=== PATIENT | male | born 1950 | race Caucasian/White ===

== ENCOUNTER → 2017-12-14 12:58 | Outpatient (CLI) | payer MEDICARE, SELFPAY ==
--- NOTE | 2017-12-14 | DI.ECHO.S_ITS ---
[place] +---------+ [facility] +---------+ : : [address] : : : : [place] : : : : [id number] : : : : Phone: [phone] +---------+ Echocardiogram Report + + :Name: SARA DEMPSEY Study Date: 12/14/2017 Height: 73 in : :[facility] Exam Location: IS Weight: 170 lb : : Gender: Male BSA: 2.0 m2 : :: 1950 Age: 67 yrs BP: 122/80 mmHg: :Reason For Study: Aortic Regurgitation : :Ordering Physician: Nils : :Salma Performed By: Cami Sidhu : :Referring: NILS GAYLE : + + Interpretation Summary The left ventricle is mild-moderately dilated. There is mild-moderate concentric left ventricular hypertrophy. The ejection fraction is estimated to be 55-60%. The right ventricle is borderline dilated. The right ventricular systolic function is normal. Both atria are severely dilated. The aortic valve is bicuspid. The peak aortic velocity is 3.9 m/sec. The calculated aortic valve area is 1.8 cm2. There is moderate to severe aortic regurgitation. The IVC is dilated (diameter is greater than 2.1 cm) yet it collapses greater than 50% with a sniff. This suggests a right atrial pressure of 8 mm Hg. The ascending aorta is moderate-severely enlarged. Compared with the prior exam from 06/23/2016 the Aortic size is unchanged. No other echocardiographic abnormalities seen. Compared to the prior echo report on 06/23/2016, there is no significant change. Procedure: A two-dimensional transthoracic echocardiogram with color flow and Doppler was performed. The study quality was technically adequate. Comparison is made with the echocardiogram of 06/23/2016. Left Ventricle: The left ventricle is mild-moderately dilated. There is mild-moderate concentric left ventricular hypertrophy. The ejection fraction is estimated to be 55-60%. There are no focal wall motion abnormalities. Right Ventricle: The right ventricle is borderline dilated. The right ventricular systolic function is normal. Atria: Both atria are severely dilated. The interatrial septum is intact with no evidence for an atrial septal defect. Mitral Valve: The mitral valve leaflets appear borderline thickened, but open well. There is mild mitral regurgitation. Aortic Valve: The aortic valve is bicuspid. The aortic valve is mildly calcified. The peak aortic velocity is 3.9 m/sec. The aortic valve mean gradient is 35 mmHg. The calculated aortic valve area is 1.8 cm2. There is moderate to severe aortic regurgitation. Tricuspid Valve: The tricuspid valve is normal in structure and function. There is trace tricuspid regurgitation. Pulmonary artery pressures cannot be estimated because of the lack of a measurable TR jet velocity. Pulmonic Valve: The pulmonic valve is normal in structure and function. There is trace pulmonic regurgitation. Great Vessels: The aortic root is moderately dilated. The ascending aorta is moderate-severely enlarged. Compared with the prior exam from 06/23/2016 the Aortic size is unchanged. The IVC is dilated (diameter is greater than 2.1 cm) yet it collapses greater than 50% with a sniff. This suggests a right atrial pressure of 8 mm Hg. Pericardium/ Pleura There is no pericardial effusion. There is no pleural effusion. MMode/2D Measurements & Calculations LVIDd: 6.3 cm LVOT diam: 2.9 cm LVIDs: 3.6 cm Ao root diam: 4.4 cm FS: 42.0 % asc Aorta Diam: 4.9 cm EPSS: 1.7 cm Ao Arch Diam (Prox Trans): 2.6 cm IVSd: 1.8 cm LVPWd: 1.4 cm LV navarro. diameter/BSA (cm/m^2): 3.1 LV sys. diameter/BSA (cm/m^2): 1.8 LA A2 area: 46.6 cm2 RA long axis: 7.7 cm LA A4 area: 33.1 cm2 RA area: 29.2 cm2 LA length (vol): 7.3 cm RA vol: 94.2 ml LA vol: 179.2 ml RA : 46.9 ml/m2 LA vol index: 89.2 ml/m2 IVC diam: 2.6 cm RVD1 (basal): 4.2 cm TAPSE: 2.5 cm Doppler Measurements & Calculations Ao V2 max: 388.8 cm/sec LVOT Max Mookie: 103.8 cm/sec Ao V2 mean: 282.6 cm/sec LV V1 max P.3 mmHg Ao max P.5 mmHg LV V1 VTI: 25.4 cm Ao mean P.3 mmHg JATINDER(I,D): 1.8 cm2 Ao V2 VTI: 95.8 cm JATINDER(V,D): 1.8 cm2 sev ratio: 0.27 JATINDER indexed to BSA (cm^2/m^2): 0.89 AI P1/2t: 483.3 msec AI dec slope: 247.7 cm/sec2 Reading Physician:05:57 PM
== END ==
PROVIDERS: Visit Provider Internal Medicine Cardiovascular Disease
DX: I35.1 Nonrheumatic aortic (valve) insufficiency (principal)
CPT/HCPCS: 93306

== ENCOUNTER → 2019-04-12 13:47 | Outpatient (CLI) | payer MEDICARE, SELFPAY ==
--- NOTE | 2019-04-12 | DI.ECHO.S_ITS ---
[place] +---------+ Hospital +---------+ : : [address] : : : : [place], [place] : : : : [id number] : : : : Phone: [phone] +---------+ Echocardiogram Report + + :Name: SARA DEMPSEY Study Date: 04/12/2019 Height: 73 in : :[facility] Exam Location: [facility] Weight: 180 lb : : Gender: Male BSA: 2.1 m2 : :: 1950 Age: 69 yrs BP: 118/70 mmHg: :Reason For Study: AI : : Performed By: Patricio Weaver : :Referring: ILIANA GAYLE : + + Interpretation Summary Afib with heart rate ranging from 49-72 bpm. Mildly dilated LV (6 cm diameter) with normal wall thickness. There is normal EF estimated at 55-60%. Severe biatrial enlargement. RV is normal in size with mildly reduced RV function based on TAPSE. Aortic valve is a bicuspid structure. Aortic valve leaflets are severely thickened and calcified. There is severe aortic stenosis with mean gradient of 40 mm Hg and peak velocity of 3.8 m/sec. There is moderate associated aortic regurgitation. Otherwise no significant valvular abnormalities. There is moderately dilated ascending aorta measuring 4.9 cm. Compared to prior study 12/14/2017 aortic valve degeneration is worse. Peak velocity across the aortic valve ivis from 3.5 to 3.8 m/sec. Mean gradient is up from 35 to 40 mm Hg. Ascending aorta dimension is stable. LV size is stable. Procedure: A two-dimensional transthoracic echocardiogram with color flow and Doppler was performed. The study quality was technically good. Comparison is made with the echocardiogram of 12/14/17. The patient was in atrial fibrillation with controlled ventricular rate during the exam. The patient had a heart rate of 49-72 beats per minute. Left Ventricle: There is normal left ventricular wall thickness. The left ventricle is mildly dilated. The ejection fraction is estimated to be 55-60%. There are no focal wall motion abnormalities. Right Ventricle: The right ventricle is normal size. Right ventricular systolic function is at the lower limits of normal. Atria: Both atria are severely dilated. The interatrial septum is intact with no evidence for an atrial septal defect. Mitral Valve: There is mild mitral annular calcification. There is trace mitral regurgitation. Aortic Valve: The aortic valve is bicuspid. The aortic valve is mildly calcified. The peak aortic velocity is 3.8 m/sec. The aortic valve mean gradient is 40.1 mmHg. The calculated aortic valve area is 1.0 cm2. There is moderate aortic stenosis. There is mild to moderate aortic regurgitation. There is no holodiastolic flow reversal in the descending thoracic aorta. Tricuspid Valve: The tricuspid valve is normal in structure and function. There is trace tricuspid regurgitation. Pulmonary artery pressures cannot be estimated because of the lack of a measurable TR jet velocity. Pulmonic Valve: The pulmonic valve is normal in structure and function. There is trace pulmonic regurgitation. Great Vessels: The aortic root is mildly dilated. The ascending aorta is moderately enlarged. The pulmonary artery is normal size. The IVC is dilated (diameter is greater than 2.1 cm) yet it collapses greater than 50% with a sniff. This suggests a right atrial pressure of 8 mm Hg. Pericardium/ Pleura There is no pericardial effusion. There is no pleural effusion. MMode/2D Measurements & Calculations LVIDd: 6.0 cm LVOT diam: 2.6 cm LVIDs: 4.0 cm Ao root diam: 4.2 cm FS: 34.0 % Aortic Jxn: 3.5 cm EPSS: 1.4 cm asc Aorta Diam: 4.9 cm IVSd: 1.3 cm Ao Arch Diam (Prox Trans): 2.8 cm LVPWd: 1.1 cm LV navarro. diameter/BSA (cm/m^2): 2.9 LV sys. diameter/BSA (cm/m^2): 1.9 LA dimension: 4.8 cm RA long axis: 7.4 cm LA A2 area: 53.4 cm2 RA area: 33.3 cm2 LA A4 area: 43.9 cm2 RA vol: 127.7 ml LA length (vol): 7.9 cm RA : 62.1 ml/m2 LA vol: 250.4 ml IVC diam: 2.8 cm LA vol index: 121.7 ml/m2 Doppler Measurements & Calculations Ao V2 max: 383.2 cm/sec LVOT Max Mookie: 75.4 cm/sec Ao V2 mean: 308.3 cm/sec LV V1 max P.3 mmHg Ao max P.8 mmHg LV V1 VTI: 18.4 cm Ao mean P.1 mmHg JATINDER(I,D): 1.0 cm2 Ao V2 VTI: 97.2 cm JATINDER(V,D): 1.0 cm2 sev ratio: 0.19 JATINDER indexed to BSA (cm^2/m^2): 0.49 AI P1/2t: 646.2 msec AI dec slope: 198.4 cm/sec2 MV E max mookie: 119.1 cm/sec PA V2 max: 62.5 cm/sec MV A max mookie: 0.64 cm/sec PA V2 mean: 45.0 cm/sec MV E/A: 185.3 PA mean P.88 mmHg Med Peak E' Mookie: 6.2 cm/sec PA pr(Accel): 25.8 mmHg E/E' med: 19.1 MV dec time: 0.18 sec MVA(VTI): 5.1 cm2 MV V2 mean: 68.0 cm/sec SV(LVOT): 97.4 ml MV mean P.3 mmHg MV V2 VTI: 19.3 cm Electronically signed by: Meryl Miller M.D. on Reading Physician:04/14/2019 05:43 AM
== END ==
PROVIDERS: PCP Family Medicine; Visit Provider Internal Medicine Cardiovascular Disease
DX: I35.2 Nonrheumatic aortic (valve) stenosis with insufficiency (principal); I77.89 Other specified disorders of arteries and arterioles
CPT/HCPCS: 93306

== ENCOUNTER → 2019-06-17 17:20 | Outpatient (CLI) | payer MEDICARE, SELFPAY ==
[2019-06-17 18:06] LABS: INR 3.2 (0.9-1.3); Prothrombin Time 37.7 SECONDS (10.1-12.7)
== END ==
PROVIDERS: PCP Family Medicine; Visit Provider Family Medicine
DX: I48.91 Unspecified atrial fibrillation (principal)
CPT/HCPCS: 36415; 85610

== ENCOUNTER → 2019-09-12 13:53 | Outpatient (CLI) | payer OTHER, SELFPAY ==
--- NOTE | 2019-09-12 | DI.ECHO.S_ITS ---
[place] +---------+ Hospital +---------+ : : [address] : [place] : : : : [id number] : : : : Phone: [phone] +---------+ Echocardiogram Report + + :Name: SARA DEMPSEY Study Date: 09/12/2019 Height: 73 in : :[facility] Weight: 175 lb : : Gender: Male BSA: 2.0 m2 : :: 1950 Age: 69 yrs BP: 142/82 mmHg: :Reason For Study: Bicuspid Aortic Valve, Aortic Insufficiency, : :Aortic Stenosis : :Ordering Physician: Andriy : :Nidia Pugh Performed By: Susana Kim : :Referring: ANDRIY SCHULTZ : + + Interpretation Summary The aortic valve is bicuspid. Moderately severe aortic stenosis with JATINDER 1.1cm2, average peak velocity of 3.6 m/s and average mean gradient of 40 mmHg with mild to moderate AI. Dilated ascending aorta at 5 cm. Severe biatrial enlargement. The left ventricular ejection fraction is normal. LVEDD 5.6 cm, LVEDV 140 ml The right ventricle is normal in size and function. Procedure: The study quality was technically adequate. A two-dimensional transthoracic echocardiogram with color flow and Doppler was performed. Comparison is made with the echocardiogram of 04/12/2019. The patient was in atrial fibrillation with heart rates between 60-72 bpm during the exam. Left Ventricle: The left ventricle is mildly dilated. There is normal left ventricular wall thickness. The ejection fraction is estimated to be 55-60%. The left ventricular ejection fraction is normal. Left ventricular wall motion is normal. Diastolic function could not be accurately assessed due to atrial fibrillation. Right Ventricle: The right ventricle is normal in size and function. Atria: Both atria are severely dilated. Mitral Valve: There is a flat closure plane of the the mitral valve leaflets. There is mild mitral annular calcification. There is mild mitral regurgitation. Aortic Valve: The aortic valve is bicuspid. The aortic valve is moderately calcified. There is severe aortic stenosis. There is mild to moderate aortic regurgitation. Tricuspid Valve: The tricuspid valve is normal in structure and function. There is a trace or physiologic amount of tricuspid regurgitation. Pulmonary artery pressures cannot be estimated because of the lack of a measurable TR jet velocity but the IVC suggests a CVP of around 8 mmHg. Pulmonic Valve: The pulmonic valve is not well visualized. There is no pulmonic valvular regurgitation. Great Vessels: The aortic root is mildly dilated. The ascending aorta is moderately enlarged. The IVC is dilated (diameter is greater than 2.1 cm) yet it collapses greater than 50% with a sniff. This suggests a right atrial pressure of 8 mm Hg. Pericardium/ Pleura There is no pericardial effusion. There is no pleural effusion. MMode/2D Measurements & Calculations LVIDd: 6.1 cm LVOT diam: 2.6 cm LVIDs: 4.5 cm Ao root diam: 4.0 cm FS: 26.2 % asc Aorta Diam: 5.0 cm EPSS: 1.3 cm Ao Arch Diam (Prox Trans): 2.8 cm IVSd: 1.2 cm LVPWd: 1.2 cm LV navarro. diameter/BSA (cm/m^2): 3.0 LV sys. diameter/BSA (cm/m^2): 2.2 LA A2 area: 44.0 cm2 RA long axis: 7.4 cm LA A4 area: 42.1 cm2 RA area: 39.2 cm2 LA length (vol): 7.9 cm RA vol: 175.8 ml LA vol: 198.7 ml RA : 86.5 ml/m2 LA vol index: 97.7 ml/m2 IVC diam: 2.2 cm RVD1 (basal): 3.4 cm LVAd ap4: 37.0 cm2 TAPSE: 2.0 cm LVAs ap4: 24.4 cm2 LVLs ap4: 7.6 cm Doppler Measurements & Calculations Ao V2 max: 414.1 cm/sec LVOT Max Mookie: 85.7 cm/sec Ao V2 mean: 298.7 cm/sec LV V1 max P.9 mmHg Ao max P.7 mmHg LV V1 VTI: 20.6 cm Ao mean P.9 mmHg JATINDER(I,D): 1.1 cm2 Ao V2 VTI: 96.0 cm JATINDER(V,D): 1.1 cm2 sev ratio: 0.21 JATINDER indexed to BSA (cm^2/m^2): 0.55 MV E max mookie: 126.0 cm/sec PA V2 max: 55.4 cm/sec MV A max mookie: 1.3 cm/sec PA V2 mean: 39.2 cm/sec MV E/A: 93.5 PA mean P.70 mmHg Med Peak E' Mookie: 8.3 cm/sec PA pr(Accel): 33.3 mmHg E/E' med: 15.2 PA Accel Time: 0.11 sec Lat Peak E' Mookie: 10.0 cm/sec E/E' lat: 12.6 E/e' average: 13.9 MV dec time: 0.17 sec MV P1/2t: 48.5 msec MV P1/2t max mookie: 121.3 cm/sec SV(LVOT): 108.3 ml MVA(P1/2t): 4.5 cm2 Electronically signed by: Andriy Schultz M.D. on Reading Physician:09/13/2019 06:17 PM
== END ==
PROVIDERS: PCP Family Medicine; Referring Provider Hospitalist; Visit Provider Hospitalist
DX: I08.0 Rheumatic disorders of both mitral and aortic valves (principal); I77.810 Thoracic aortic ectasia
CPT/HCPCS: 93306

== ENCOUNTER → 2019-10-06 16:25 | Outpatient (CLI) | payer OTHER, SELFPAY ==
[2019-10-06 17:31] LABS: BUN Creatinine Ratio 21.4 (6-22); Blood Urea Nitrogen 18 mg/dL (9-20); Carbon Dioxide 28 mmol/L (22-32); Chloride 107 mmol/L (98-107); Estimated Glomerular Filt Rate > 60.0 mL/min (>60); Glucose 94 mg/dL (80-110); HEMOLYSIS 26 (0-50); Potassium 4.2 mmol/L (3.4-5.1); Sodium 139 mmol/L (137-145)
== END ==
PROVIDERS: PCP Family Medicine; Referring Provider Nurse Practitioner; Visit Provider Nurse Practitioner
DX: I71.9 Aortic aneurysm of unspecified site, without rupture (principal)
CPT/HCPCS: 36415; 80048

== ENCOUNTER → 2019-11-17 16:52 | Outpatient (CLI) | payer OTHER, SELFPAY | PROVIDERS: PCP Family Medicine; Referring Provider Ophthalmology; Visit Provider Ophthalmology | DX: B00.9 Herpesviral infection, unspecified (principal); H16.9 Unspecified keratitis | CPT/HCPCS: 87070; 87205; 87255 ==

== ENCOUNTER → 2020-04-09 14:39 | Outpatient (CLI) | payer OTHER, SELFPAY ==
--- NOTE | 2020-04-09 | DI.ECHO.S_ITS ---
[place] +---------+ Hospital +---------+ : : [address] : [place] : : : : [id number] : : : : Phone: [phone] : [phone] +---------+ Echocardiogram Report + + :Name: SARA DEMPSEY Study Date: 04/09/2020 Height: 73 in : :[facility] Weight: 172 lb : : Gender: Male BSA: 2.0 m2 : :: 1950 Age: 70 yrs BP: 131/79 mmHg: :Reason For Study: PRESENCE OF OTHER VASCULAR IMPLANTS AND : :GRAFTS : :Ordering Physician: MARION, : :ANDRIY Performed By: Susana Kim : :Referring: ANDRIY SCHULTZ : + + Interpretation Summary The left ventricle is normal in size. Left ventricular ejection fraction is estimated to be 50 +/- 5%. Compared to the prior exam, the left ventricular function is reduced. E/E' med: 22.8 The right ventricle is grossly normal size. Right ventricular systolic function is mildly reduced. There is a pacemaker lead in the right ventricle (new). There is a catheter/pacemaker lead seen in the right atrium. There is a mechanical aortic valve (new). There is trace perivalvular regurgitation around the prosthetic aortic valve. The peak aortic velocity is 1.89 m/sec. The aortic valve mean gradient is 7.5 mmHg. The prosthetic aortic valve is well-seated. There is mild to moderate tricuspid regurgitation. This is decreased compared to the previous study. Procedure: A two-dimensional transthoracic echocardiogram with color flow and Doppler was performed. The study quality was technically adequate. Comparison is made with the echocardiogram of 09/12/2019. The patient has a paced rhythm. Left Ventricle: The left ventricle is normal in size. There is mild-moderate concentric left ventricular hypertrophy. There is no thrombus. Left ventricular ejection fraction is estimated to be 50 +/- 5%. Compared to the prior exam, the left ventricular function is reduced. There is a mild dyssynchronous contraction pattern due to the paced rhythm. Septal motion is consistent with post-operative state. There is septal wall hypokinesis. Diastolic function could not be accurately assessed due to paced rhythm. E/E' med: 22.8. Right Ventricle: There is a pacemaker lead in the right ventricle. The right ventricle is grossly normal size. Right ventricular systolic function is mildly reduced. Atria: The left atrium is severely dilated. The left atrium has remained unchanged in size since the prior echo exam. There is a catheter/pacemaker lead seen in the right atrium. The right atrium is severely dilated. There is no Doppler evidence for an interatrial shunt. Mitral Valve: There is mild mitral annular calcification. There is mild mitral regurgitation. Aortic Valve: There is a mechanical aortic valve. There is trace perivalvular regurgitation around the prosthetic aortic valve. The prosthetic aortic valve is well-seated. There is no aortic valve stenosis. The peak aortic velocity is 1.89 m/sec. The aortic valve mean gradient is 7.5 mmHg. Tricuspid Valve: The tricuspid valve is normal. There is mild to moderate tricuspid regurgitation. Pulmonic Valve: The pulmonic valve leaflets are thin and pliable; valve motion is normal. There is mild pulmonic regurgitation. Great Vessels: The aortic root is not well visualized. The ascending aorta is normal in size. This is decreased compared to the previous study. The IVC is of normal diameter and collapses greater than 50% with a sniff. This suggests a low right atrial pressure of 3 mm Hg. Pericardium/ Pleura There is no pericardial effusion. There is no pleural effusion. MMode/2D Measurements & Calculations LVIDd: 5.5 cm LVOT diam: 2.1 cm LVIDs: 4.3 cm asc Aorta Diam: 3.3 cm FS: 23.0 % Ao Arch Diam (Prox Trans): 3.8 cm EPSS: 0.58 cm IVSd: 1.5 cm LVPWd: 1.3 cm LV navarro. diameter/BSA (cm/m^2): 2.7 LV sys. diameter/BSA (cm/m^2): 2.1 LA A2 area: 49.3 cm2 RA long axis: 7.3 cm LA A4 area: 30.6 cm2 RA area: 28.8 cm2 LA length (vol): 7.3 cm RA vol: 96.8 ml LA vol: 173.9 ml RA : 48.0 ml/m2 LA vol index: 86.2 ml/m2 IVC diam: 1.8 cm RVD1 (basal): 3.9 cm TAPSE: 1.2 cm Doppler Measurements & Calculations Ao V2 max: 188.9 cm/sec LVOT Max Mookie: 155.9 cm/sec Ao V2 mean: 127.0 cm/sec LV V1 max P.7 mmHg Ao max P.3 mmHg LV V1 VTI: 30.7 cm Ao mean P.5 mmHg JATINDER(I,D): 2.8 cm2 Ao V2 VTI: 37.8 cm JATINDER(V,D): 2.8 cm2 sev ratio: 0.81 JATINDER indexed to BSA (cm^2/m^2): 1.4 MV E max mookie: 109.4 cm/sec TR max mookie: 229.4 cm/sec MV A max mookie: 0.84 cm/sec TR max P.0 mmHg MV E/A: 129.9 PA V2 max: 56.9 cm/sec Med Peak E' Mookie: 4.8 cm/sec PA V2 mean: 38.8 cm/sec E/E' med: 22.8 PA mean P.68 mmHg Lat Peak E' Mookie: 9.3 cm/sec PA pr(Accel): 27.6 mmHg E/E' lat: 11.8 E/e' average: 17.3 MV dec time: 0.24 sec SV(LVOT): 104.9 ml Reading Physician:05:56 PM
== END ==
PROVIDERS: PCP Family Medicine; Referring Provider Hospitalist; Visit Provider Hospitalist
DX: I08.1 Rheumatic disorders of both mitral and tricuspid valves (principal); Z95.4 Presence of other heart-valve replacement; Z95.828 Presence of other vascular implants and grafts; Z95.0 Presence of cardiac pacemaker
CPT/HCPCS: 93306

== ENCOUNTER → 2020-04-21 14:23 | Outpatient (CLI) | payer OTHER, SELFPAY ==
[2020-04-23 07:55] LABS: COVID19 Sendout Not Detected (Not Detect)
== END ==
PROVIDERS: PCP Family Medicine; Visit Provider Physician Assistant
DX: Z01.812 Encounter for preprocedural laboratory examination (principal)
CPT/HCPCS: 87635

== ENCOUNTER 2020-09-10 14:00 | Outpatient (RCR) | payer OTHER, SELFPAY | END 2020-09-10 15:00 | LOC: CAR 14:00 | PROVIDERS: PCP Family Medicine; Referring Provider Hospitalist; Visit Provider Hospitalist | DX: Z95.2 Presence of prosthetic heart valve (principal) | CPT/HCPCS: 93798 ==

== ENCOUNTER → 2020-09-14 15:22 | Outpatient (CLI) | payer OTHER, SELFPAY ==
[2020-09-14 16:53] LABS: BUN Creatinine Ratio 29.6 (6-22); Blood Urea Nitrogen 24 mg/dL (9-20); Carbon Dioxide 28 mmol/L (22-32); Chloride 107 mmol/L (98-107); Estimated Glomerular Filt Rate > 60.0 mL/min (>60); Glucose 104 mg/dL (80-110); HEMOLYSIS < 15 (0-50); Potassium 4.2 mmol/L (3.4-5.1); Sodium 140 mmol/L (137-145)
== END ==
PROVIDERS: PCP Family Medicine; Referring Provider Internal Medicine Cardiovascular Disease; Visit Provider Internal Medicine Cardiovascular Disease
DX: I48.20 Chronic atrial fibrillation, unspecified (principal)
CPT/HCPCS: 36415; 80048

== ENCOUNTER → 2020-09-24 08:59 | Outpatient (CLI) | payer OTHER, SELFPAY ==
--- NOTE | 2020-09-24 | DI.ECHO.S_ITS ---
[place] +---------+ Hospital +---------+ : : [address] : [place] : : : : [id number] : : : : Phone: [phone] : : [phone] +---------+ Echocardiogram Report + + :Name: SARA DEMPSEY Study Date: 09/24/2020 Height: 73 in : :[facility] ReadingLocation: Weight: 175 lb : : Gender: Male BSA: 2.0 m2 : :: 1950 Age: 70 yrs BP: 157/84 mmHg: :Reason For Study: PROSTHETIC HEART VALVE : :Ordering Physician: ADELA, : :MAYO Performed By: Susana Kim : :Referring: MAYO CHAPMAN : + + Interpretation Summary The left ventricle is normal in size. Left ventricular ejection fraction is estimated to be 50 +/- 5%. There has been no significant change in LVEF since the previous exam. The right ventricle is grossly normal size. There is a pacemaker lead in the right ventricle. Right ventricular systolic function is mildly reduced. There is a mechanical aortic valve. The prosthetic aortic valve is well-seated. The peak aortic velocity is 1.69 m/sec. The aortic valve mean gradient is 7.3 mmHg. The peak aortic velocity on the previous exam was 1.88 m/sec. There is trace perivalvular regurgitation around the prosthetic aortic valve. The IVC is of normal diameter and collapses greater than 50% with a sniff. This suggests a low right atrial pressure of 3 mm Hg. Procedure: A two-dimensional transthoracic echocardiogram with color flow and Doppler was performed in limited views only to assess aortic valve replacement, ejection fraction, wall motion, RVSP.. The study quality was technically adequate. Comparison is made with the echocardiogram of 04/09/2020. The heart rate ranged between 60-74 bpm during the study. The patient was in atrial fibrillation with controlled ventricular rate during the exam. Left Ventricle: The left ventricle is normal in size. There is mild concentric left ventricular hypertrophy. There is no thrombus. There has been no significant change since the previous exam. Left ventricular ejection fraction is estimated to be 50 +/- 5%. Septal motion is consistent with conduction abnormality. There is septal wall hypokinesis. Right Ventricle: The right ventricle is grossly normal size. There is a pacemaker lead in the right ventricle. Right ventricular systolic function is mildly reduced. There has been no significant change since the previous study. Atria: The left atrium is severely dilated. Both atria have remained unchanged in size since the prior echo exam. The right atrium is severely dilated. There is a catheter/pacemaker lead seen in the right atrium. Mitral Valve: There is mild mitral annular calcification. Aortic Valve: There is a mechanical aortic valve. There is trace perivalvular regurgitation around the prosthetic aortic valve. The prosthetic aortic valve is well-seated. The peak aortic velocity is 1.69 m/sec. The aortic valve mean gradient is 7.3 mmHg. The peak aortic velocity on the previous exam was 1.88 m/sec. Tricuspid Valve: There is mild to moderate tricuspid regurgitation. The right ventricular systolic pressure is estimated to be at least 20 mmHg based on an estimated right atrial pressure of 3 mm Hg. Great Vessels: The ascending aorta is normal in size. The IVC is of normal diameter and collapses greater than 50% with a sniff. This suggests a low right atrial pressure of 3 mm Hg. Pericardium/ Pleura There is no pericardial effusion. There is no pleural effusion. MMode/2D Measurements & Calculations LVIDd: 5.4 cm LVOT diam: 2.0 cm LVIDs: 3.7 cm asc Aorta Diam: 3.2 cm FS: 31.0 % IVSd: 1.3 cm LVPWd: 1.3 cm LV navarro. diameter/BSA (cm/m^2): 2.6 LV sys. diameter/BSA (cm/m^2): 1.8 LA A2 area: 36.8 cm2 RA long axis: 7.8 cm LA A4 area: 43.9 cm2 RA area: 33.4 cm2 LA length (vol): 8.0 cm RA vol: 120.9 ml LA vol: 171.6 ml RA : 59.4 ml/m2 LA vol index: 84.4 ml/m2 IVC diam: 1.8 cm RVD1 (basal): 2.3 cm TAPSE: 1.2 cm Doppler Measurements & Calculations Ao V2 max: 168.9 cm/sec LVOT Max Mookie: 76.0 cm/sec Ao V2 mean: 128.6 cm/sec LV V1 max P.3 mmHg Ao max P.5 mmHg LV V1 VTI: 14.0 cm Ao mean P.3 mmHg JATINDER(I,D): 1.4 cm2 Ao V2 VTI: 32.1 cm JATINDER(V,D): 1.4 cm2 sev ratio: 0.44 JATINDER indexed to BSA (cm^2/m^2): 0.68 TR max mookie: 203.8 cm/sec SV(LVOT): 44.6 ml TR max P.6 mmHg PA pr(Accel): 8.8 mmHg Reading Physician:01:26 PM
== END ==
PROVIDERS: PCP Family Medicine; Referring Provider Internal Medicine Cardiovascular Disease; Visit Provider Internal Medicine Cardiovascular Disease
DX: I07.1 Rheumatic tricuspid insufficiency (principal); Z95.2 Presence of prosthetic heart valve; Z95.0 Presence of cardiac pacemaker
CPT/HCPCS: 93307

== ENCOUNTER → 2020-09-24 10:19 | Outpatient (CLI) | payer MEDICARE, SELFPAY ==
[2020-09-24] MEDS: COVID-19 VACC, Ad26(JANSSEN)/PF 0.5 ML IM (10:28)
== END ==
PROVIDERS: PCP Family Medicine; Visit Provider Internal Medicine
DX: Z23 Encounter for immunization (principal)
CPT/HCPCS: 0031A; 91303

== ENCOUNTER → 2021-01-21 14:06 | Outpatient (CLI) | payer OTHER, SELFPAY ==
[2021-01-21 15:18] LABS: INR 3.8 (0.9-1.3); Prothrombin Time 43.5 SECONDS (10.1-12.7)
== END ==
PROVIDERS: PCP Family Medicine; Referring Provider Family Medicine; Visit Provider Family Medicine
DX: I48.11 Longstanding persistent atrial fibrillation (principal); Z79.01 Long term (current) use of anticoagulants
CPT/HCPCS: 85610

== ENCOUNTER → 2021-05-21 14:52 | Outpatient (CLI) | payer OTHER, SELFPAY ==
--- NOTE | 2021-05-21 14:52 | DI.ECHO.S_ITS ---
Version: 1 Study ID: [id number] [address] [place] [address] Name: SARA DEMPSEY Study Date: 05/21/2021, 4: 27 PM : 1950 BP: 149 / 95 mmHg Gender: Male Height: 73 in Age: 71 Years Weight: 185 lb BSA: 2.08 mA? Ordering: MAYO CHAPMAN Referring: MAYO CHAPMAN Clinician: Susana Kim Reason For Study: ATRIAL FIBRILLATION History: Summary Statements Afib with controlled rate in the setting of RV pacing. The left ventricle is normal in size; moderate concentric LVH; mildly reduced LV systolic function estimated at 45-50%. Severe biatrial enlargement. There is a mechanical aortic valve. The prosthetic aortic valve is well-seated. There is trace perivalvular regurgitation along the posterolateral aspect of the prosthetic aortic valve. Otherwise no significant valvular abnormalities. There is a pacing lead traversing the tricuspid valve. Estimated PA systolic pressure is 29 mm Hg assuming RA pressure of 8 mm Hg. Compared to prior study in 2019, no changes have occurred. Procedure: A two-dimensional transthoracic echocardiogram with color flow and Doppler was performed in limited views only to assess Aortic valve replacement, ejection fraction.. The study quality was technically adequate. Comparison is made with the echocardiogram of 09/24/2020. The patient has a paced rhythm. The heart rate ranged between 60-65 bpm during the study. Left Ventricle: The left ventricle is normal in size. There is moderate concentric left ventricular hypertrophy. The ejection fraction is estimated to be 45-50%. Right Ventricle: The right ventricle is normal size. There is a pacemaker lead in the right ventricle. Right ventricular systolic function is mildly reduced. Atria: The left atrium is severely dilated. The right atrium is severely dilated. Mitral Valve: Aortic Valve: There is a mechanical aortic valve. There is trace perivalvular regurgitation around the prosthetic aortic valve. The peak aortic velocity is 1.97 m/sec. The aortic valve mean gradient is 8 mmHg. The calculated aortic valve area is 1.3 cm2. Pulmonic Valve: Great Vessels: The dimensions of the ascending aorta are normal. Pericardium/ Pleura: There is no pericardial effusion. There is no pleural effusion. 2D and M-Mode Measurements and Calculations LVIDd: 5.6 cm LVOT diam: 2.01 cm LVIDs: 3.9 cm Ao root diam: 4.4 cm IVSd: 1.51 cm asc Aorta Diam: 3.3 cm LVPWd: 1.34 cm LV navarro. diameter/BSA (cm/m^2): 2.7 LV sys. diameter/BSA (cm/m^2): 1.89 TAPSE: 1.28 cm IVC diam: 2.11 cm LA A4 area: 36.5 management services technician? RA area: 35.2 management services technician? LA A2 area: 44.6 management services technician? RA long axis: 7.9 cm LA length (vol): 8.0 cm RA vol: 133.9 ml LA vol: 172.8 ml RA : 64.3 ml/mA? LA vol index: 83.0 ml/mA? Doppler Measurements and Calculations Ao V2 max: 196.6 cm/sec LVOT Max Mookie: 80.1 cm/sec Ao V2 mean: 128.4 cm/sec LV V1 max P.6 mmHg Ao V2 VTI: 39.4 cm LV V1 VTI: 15.9 cm Ao max P.5 mmHg Ao mean P.2 mmHg JATINDER(I,D): 1.27 management services technician? JATINDER(V,D): 1.29 management services technician? JATINDER indexed to BSA (cm^2/m^2): 0.61 sev ratio: 0.40 TR max mookie: 227.3 cm/sec PA mean P.53 mmHg TR max P.7 mmHg PA V2 max: 88.3 cm/sec Electronically signed by: Meryl Miller M.D. 05/24/2021, 7: 15 AM
== END ==
PROVIDERS: PCP Family Medicine; Referring Provider Internal Medicine Cardiovascular Disease; Visit Provider Internal Medicine Cardiovascular Disease
DX: I48.20 Chronic atrial fibrillation, unspecified (principal); Z95.2 Presence of prosthetic heart valve; Z95.0 Presence of cardiac pacemaker
CPT/HCPCS: 93307

== ENCOUNTER → 2021-06-07 10:39 | Outpatient (CLI) | payer OTHER, SELFPAY ==
[2021-06-07 11:21] LABS: BUN Creatinine Ratio 20.7 (6-22); Blood Urea Nitrogen 19 mg/dL (9-20); Calcium 9.4 mg/dL (8.4-10.2); Carbon Dioxide 33 mmol/L (22-32); Chloride 101 mmol/L (98-107); Estimated Glomerular Filt Rate > 60.0 mL/min (>60); Glucose 73 mg/dL (80-110); HEMOLYSIS < 15 (0-50); Potassium 4.6 mmol/L (3.4-5.1); Sodium 140 mmol/L (137-145)
== END ==
PROVIDERS: PCP Family Medicine; Referring Provider Internal Medicine Cardiovascular Disease; Visit Provider Internal Medicine Cardiovascular Disease
DX: I48.20 Chronic atrial fibrillation, unspecified (principal)
CPT/HCPCS: 36415; 80048

== ENCOUNTER → 2021-07-02 15:00 | Outpatient (CLI) | payer OTHER, SELFPAY ==
[2021-07-02 17:20] LABS: INR 3.3 (0.9-1.3); Prothrombin Time 38.3 SECONDS (10.1-12.7)
== END ==
PROVIDERS: PCP Family Medicine; Referring Provider Family Medicine; Visit Provider Family Medicine
DX: Z79.01 Long term (current) use of anticoagulants (principal)
CPT/HCPCS: 36415; 85610

== ENCOUNTER → 2021-07-10 11:57 | Outpatient (CLI) | payer OTHER, SELFPAY ==
[2021-07-10 13:16] LABS: BUN Creatinine Ratio 17.7 (6-22); Blood Urea Nitrogen 17 mg/dL (9-20); Calcium 9.3 mg/dL (8.4-10.2); Carbon Dioxide 33 mmol/L (22-32); Chloride 104 mmol/L (98-107); Estimated Glomerular Filt Rate > 60.0 mL/min (>60); Glucose 80 mg/dL (80-110); HEMOLYSIS < 15 (0-50); Magnesium 2.3 mg/dL (1.6-2.3); Potassium 4.7 mmol/L (3.4-5.1); Sodium 139 mmol/L (137-145)
[2021-07-10 14:14] LABS: Thyroid Stimulating Hormone 3.26 uIU/mL (0.47-4.68)
== END ==
PROVIDERS: PCP Family Medicine; Referring Provider Internal Medicine Cardiovascular Disease; Visit Provider Internal Medicine Cardiovascular Disease
DX: I35.1 Nonrheumatic aortic (valve) insufficiency (principal); Z95.810 Presence of automatic (implantable) cardiac defibrillator
CPT/HCPCS: 36415; 80048; 83735; 84443

== ENCOUNTER → 2021-08-19 13:57 | Outpatient (CLI) | payer OTHER, SELFPAY ==
[2021-08-19 14:50] LABS: INR 2.9 (0.9-1.3); Prothrombin Time 33.3 SECONDS (10.1-12.7)
== END ==
PROVIDERS: PCP Family Medicine; Referring Provider Family Medicine; Visit Provider Family Medicine
DX: Z79.01 Long term (current) use of anticoagulants (principal)
CPT/HCPCS: 36415; 85610

== ENCOUNTER → 2021-12-02 11:25 | Outpatient (CLI) | payer OTHER, SELFPAY ==
[2021-12-02 12:02] LABS: BUN Creatinine Ratio 21.7 (6-22); Blood Urea Nitrogen 23 mg/dL (9-20); Estimated Glomerular Filt Rate > 60 mL/min (>60)
--- NOTE | 2021-12-02 12:38 | DI.CT.S_ITS ---
PROCEDURE: CT ABDOMEN PELVIS W CON INDICATIONS: Rule out ventral hernia TECHNIQUE: After the administration of oral and intravenous contrast, axial sections were acquired from the lung bases to the pubic symphysis. Coronal and sagittal reformats were performed. For radiation dose reduction, the following was used: automated exposure control, adjustment of mA and/or kV according to patient size. COMPARISON:None. FINDINGS: Image quality: Excellent. Lung bases: Unremarkable. Heart: Cardiomegaly, pacemaker. ABDOMEN: Liver: Unremarkable. Gallbladder: Contracted, within normal limits. Biliary ducts: Unremarkable. Pancreas: Unremarkable. Spleen: Presumed surgically absent.. Adrenal Glands: Unremarkable. Kidneys and Ureters: Unremarkable. Stomach and Bowel: Stomach, small bowel loops, and colon are unremarkable. Peritoneum: No abnormal intraperitoneal fluid. No free air. Ventral Wall: There is ventral rectus diastasis. Additionally, there are multiple hernia defects noted, to the right of midline. A more superior defect measures approximately 3.0 x 6.1 cm, and contains herniated transverse colon. A small more inferior right-sided defect measures approximately 0.7 x 1.1 cm, and contains a small amount of the ventral wall of transverse colon. To the left of midline there also small defects with herniated fat. A left more superior defect measures approximately 1.1 x 1.8 cm. A more inferior right hernia defect measures approximately 1.1 x 1.0 cm. Abdominal Nodes: No retroperitoneal or mesenteric adenopathy by size criteria. Vessels: Aorta and inferior vena cava are normal in size. PELVIS: Pelvic Organs: Unremarkable. Bladder: Unremarkable. Pelvic Nodes: No enlarged lymph nodes. Miscellaneous: No inguinal hernias are seen. Bones: Intact left posterior pelvic screws bridging the left SI joint. Old healed left up dura during fracture. No vertebral body fracture. No lytic or blastic bony lesions. IMPRESSION: 1. Ventral rectus diastasis with multifocal full-thickness hernias. 2. Cardiomegaly, pacemaker. Dictated by: Randolph Villanueva M.D. on 12/02/2021 at 14:50 Approved by: Randolph Villanueva M.D. on 12/02/2021 at 14:58
== END ==
PROVIDERS: PCP Family Medicine; Referring Provider Surgery; Visit Provider Surgery
DX: K43.9 Ventral hernia without obstruction or gangrene (principal); M62.08 Separation of muscle (nontraumatic), other site; I51.7 Cardiomegaly; Z95.0 Presence of cardiac pacemaker
CPT/HCPCS: 36415; 74177; 82565; 84520

== ENCOUNTER → 2022-05-22 12:36 | Outpatient (CLI) | payer OTHER, SELFPAY ==
--- NOTE | 2022-05-22 12:37 | DI.ECHO.S_ITS ---
[facility]---------+ [facility] +---------+ : : [address] : : : : [id number] : : : : Phone: [phone] +---------+ Echocardiogram Report + + :Name: SARA DEMPSEY Study Date: 05/22/2022 Height: 73 in : :[facility] ReadingLocation: Weight: 180 lb : : Gender: Male BSA: 2.1 m2 : :: 1950 Age: 72 yrs BP: 140/61 mmHg: :Reason For Study: CARDIAC PACEMAKER : :Ordering Physician: SASHA, : :JANIS Performed By: Susana Kim : :Referring: JANIS BAEZ : + + Interpretation Summary The left ventricle is normal in size. There is mild concentric left ventricular hypertrophy. The ejection fraction is estimated to be 50-55%. Previously 45 to 50%. The right ventricle is normal size. There is a pacemaker lead in the right ventricle. Right ventricular systolic function is mildly reduced. There has been no significant change since the previous study. Both atria are severely dilated. Both atria have remained unchanged in size since the prior echo exam. There is a mechanical aortic valve. The prosthetic aortic valve is well-seated. The peak aortic velocity is 2.04 m/sec. The aortic valve mean gradient is 17 mmHg. The peak aortic velocity on the previous exam was 1.97 m/sec. There is mild tricuspid regurgitation. Compared to the prior echo exam, there has been a decrease in TR severity. The IVC is dilated (diameter is greater than 2.1 cm) yet it collapses greater than 50% with a sniff. This suggests a right atrial pressure of 8 mm Hg. Previously 3 mmHg. The aortic root is mildly dilated. 4.4 cm in diameter. In March 2020: 4.0 cm in diameter. Mild atherosclerotic plaque(s) in the ascending aorta. Mild atherosclerotic plaque(s) in the aortic arch. Procedure: A two-dimensional transthoracic echocardiogram with color flow and Doppler was performed. The study quality was technically adequate. Comparison is made with the echocardiogram of 05/21/2021. The patient has a paced rhythm. The heart rate ranged between 60-76 bpm during the study. Left Ventricle: The left ventricle is normal in size. There is mild concentric left ventricular hypertrophy. There is no thrombus. The ejection fraction is estimated to be 50-55%. Septal motion is consistent with conduction abnormality. E/E' med: 20.5. Right Ventricle: There is a pacemaker lead in the right ventricle. The right ventricle is normal size. Right ventricular systolic function is mildly reduced. There has been no significant change since the previous study. Atria: The left atrium is severely dilated. Both atria are severely dilated. Both atria have remained unchanged in size since the prior echo exam. The right atrium is severely dilated. There is no Doppler evidence for an interatrial shunt. Mitral Valve: There is mild mitral annular calcification. There is trace mitral regurgitation. Aortic Valve: There is a mechanical aortic valve. The prosthetic aortic valve is well-seated. There is trace perivalvular regurgitation around the prosthetic aortic valve. The peak aortic velocity is 2.04 m/sec. The aortic valve mean gradient is 17 mmHg. The peak aortic velocity on the previous exam was 1.97 m/sec. There has been no significant change since the previous study. Tricuspid Valve: The tricuspid valve is normal. There is mild tricuspid regurgitation. Pulmonary artery pressures cannot be estimated because of the lack of a measurable TR jet velocity. Compared to the prior echo exam, there has been a decrease in TR severity. Pulmonic Valve: The pulmonic valve leaflets are thin and pliable; valve motion is normal. There is trace pulmonic regurgitation. Great Vessels: The aortic root is mildly dilated. The dimensions of the ascending aorta are normal. Mild atherosclerotic plaque(s) in the ascending aorta. Mild atherosclerotic plaque(s) in the aortic arch. The IVC is dilated (diameter is greater than 2.1 cm) yet it collapses greater than 50% with a sniff. This suggests a right atrial pressure of 8 mm Hg. Pericardium/ Pleura There is no pericardial effusion. There is no pleural effusion. MMode/2D Measurements & Calculations LVIDd: 5.0 cm LVOT diam: 2.0 cm LVIDs: 3.7 cm Ao root diam: 4.4 cm FS: 26.6 % asc Aorta Diam: 3.4 cm EPSS: 1.1 cm Ao Arch Diam (Prox Trans): 2.7 cm IVSd: 1.2 cm LVPWd: 1.3 cm LV navarro. diameter/BSA (cm/m^2): 2.4 LV sys. diameter/BSA (cm/m^2): 1.8 LA A2 area: 40.6 cm2 RA long axis: 8.0 cm LA A4 area: 41.6 cm2 RA area: 35.1 cm2 LA length (vol): 8.2 cm RA vol: 131.5 ml LA vol: 173.7 ml RA : 63.9 ml/m2 LA vol index: 84.4 ml/m2 IVC diam: 2.3 cm RVD1 (basal): 3.9 cm RVD2 (mid): 2.3 cm TAPSE: 1.5 cm Doppler Measurements & Calculations Ao V2 max: 204.9 cm/sec MV E max mookie: 127.0 cm/sec Ao V2 mean: 137.1 cm/sec Med Peak E' Mookie: 6.2 cm/sec Ao max P.8 mmHg E/E' med: 20.5 Ao mean P.7 mmHg Lat Peak E' Mookie: 9.3 cm/sec Ao V2 VTI: 39.6 cm E/E' lat: 13.7 E/e' average: 17.1 MV dec time: 0.21 sec PA V2 max: 90.8 cm/sec MV V2 mean: 71.9 cm/sec PA V2 mean: 67.2 cm/sec MV mean P.5 mmHg PA mean P.0 mmHg MV V2 VTI: 27.8 cm PA pr(Accel): 49.9 mmHg Reading Physician:11:49 AM
== END ==
PROVIDERS: PCP Family Medicine; Referring Provider Nurse Practitioner Acute Care; Visit Provider Nurse Practitioner Acute Care
DX: I08.1 Rheumatic disorders of both mitral and tricuspid valves (principal); I77.810 Thoracic aortic ectasia; I70.0 Atherosclerosis of aorta; Z95.0 Presence of cardiac pacemaker; Z95.2 Presence of prosthetic heart valve
CPT/HCPCS: 93306

== ENCOUNTER → 2022-06-12 11:40 | Outpatient (CLI) | payer OTHER, SELFPAY ==
[2022-06-12 13:57] LABS: BUN Creatinine Ratio 17.9 (6-22); Blood Urea Nitrogen 15 mg/dL (9-20); Carbon Dioxide 32 mmol/L (22-32); Chloride 103 mmol/L (98-107); Estimated Glomerular Filt Rate > 60 mL/min (>60); Glucose 79 mg/dL (80-110); HEMOLYSIS < 15 (0-50); Potassium 4.8 mmol/L (3.4-5.1); Sodium 139 mmol/L (137-145)
== END ==
PROVIDERS: PCP Family Medicine; Referring Provider Internal Medicine Cardiovascular Disease; Visit Provider Internal Medicine Cardiovascular Disease
DX: I48.21 Permanent atrial fibrillation (principal)
CPT/HCPCS: 36415; 80048

== ENCOUNTER → 2022-08-21 14:18 | Outpatient (CLI) | payer OTHER, SELFPAY ==
[2022-08-22 15:12] LABS: Fecal Immunochemical Test Negative (Negative)
== END ==
PROVIDERS: PCP Family Medicine; Referring Provider Family Medicine; Visit Provider Family Medicine
DX: Z12.11 Encounter for screening for malignant neoplasm of colon (principal); Z12.12 Encounter for screening for malignant neoplasm of rectum
CPT/HCPCS: 82274

== ENCOUNTER → 2023-05-18 13:50 | Outpatient (CLI) | payer OTHER, SELFPAY ==
--- NOTE | 2023-05-18 | DI.ECHO.S_ITS ---
[facility] +---------+ [facility] +---------+ : : [address] : : : : [id number] : : : : Phone: [phone] +---------+ Echocardiogram Report + + :Name: SARA DEMPSEY Study Date: 05/18/2023 Height: 73 in : :[facility] ReadingLocation: Weight: 180 lb : : Gender: Male BSA: 2.1 m2 : :: 1950 Age: 73 yrs BP: 134/70 mmHg: :Reason For Study: Atrial Fibrillation : :Ordering Physician: ADELA, : :MAYO Performed By: Yasmeen Bennett : :Referring: MAYO CHAPMAN : + + Interpretation Summary There is mild concentric left ventricular hypertrophy. The ejection fraction is estimated to be 60-65%. Diastolic function could not be accurately assessed due to paced rhythm. The right ventricle is normal in size and function. There is severe biatrial enlargement. There is a well-seated mechanical aortic valve with normal function. There is mild tricuspid regurgitation. The right ventricular systolic pressure is estimated to be at least 26 mmHg based on an estimated right atrial pressure of 8 mm Hg. Compared to the prior study dated 05/22/2022, there is an increase in the aortic valve gradients along with the ejection fraction. Procedure: A two-dimensional transthoracic echocardiogram with color flow and Doppler was performed. The study quality was technically difficult. Comparison is made with the echocardiogram of 05/22/2022. The patient has a paced rhythm. Left Ventricle: The left ventricle is normal in size. There is mild concentric left ventricular hypertrophy. The ejection fraction is estimated to be 60-65%. Diastolic function could not be accurately assessed due to paced rhythm. Right Ventricle: There is a pacemaker lead in the right ventricle. The right ventricle is normal in size and function. Atria: There is severe biatrial enlargement. There is no Doppler evidence for an interatrial shunt. Mitral Valve: The mitral valve is normal. There is mild mitral annular calcification. There is no mitral valve stenosis. There is trace mitral regurgitation. Aortic Valve: There is a mechanical aortic valve. There is trace perivalvular regurgitation around the prosthetic aortic valve. The peak aortic velocity is 2.4 m/sec. The aortic valve mean gradient is 12 mmHg. Tricuspid Valve: The tricuspid valve is normal. There is no tricuspid stenosis. There is mild tricuspid regurgitation. The right ventricular systolic pressure is estimated to be at least 26 mmHg based on an estimated right atrial pressure of 8 mm Hg. Pulmonic Valve: The pulmonic valve leaflets are thin and pliable; valve motion is normal. There is no pulmonic valvular stenosis. There is trace pulmonic regurgitation. Great Vessels: The aortic root is not well visualized. The ascending aorta is normal in size. The pulmonary artery is normal size. The IVC is dilated (diameter is greater than 2.1 cm) yet it collapses greater than 50% with a sniff. This suggests a right atrial pressure of 8 mm Hg. Pericardium/ Pleura There is no pericardial effusion. There is no pleural effusion. MMode/2D Measurements & Calculations LVIDd: 5.6 cm LVOT diam: 5.2 cm EPSS: 0.90 cm asc Aorta Diam: 3.3 cm IVSd: 1.3 cm LVPWd: 1.3 cm LV navarro. diameter/BSA (cm/m^2): 2.7 LA A2 area: 45.7 cm2 RA area: 42.2 cm2 LA A4 area: 32.1 cm2 IVC diam: 2.2 cm LA length (vol): 8.7 cm LA vol: 142.5 ml LA vol index: 69.2 ml/m2 RVD1 (basal): 3.8 cm Doppler Measurements & Calculations Ao V2 max: 241.3 cm/sec LVOT Max Mookie: 65.2 cm/sec Ao V2 mean: 158.7 cm/sec LV V1 max P.7 mmHg Ao max P.0 mmHg LV V1 VTI: 13.8 cm Ao mean P.0 mmHg JATINDER(I,D): 5.8 cm2 Ao V2 VTI: 50.9 cm JATINDER(V,D): 5.7 cm2 sev ratio: 0.27 JATINDER indexed to BSA (cm^2/m^2): 2.8 MV E max mookie: 120.5 cm/sec TR max mookie: 209.0 cm/sec MV A max mookie: 35.2 cm/sec TR max P.5 mmHg MV E/A: 3.4 PA V2 max: 83.3 cm/sec MV dec time: 0.16 sec PA V2 mean: 57.3 cm/sec PA mean P.0 mmHg PA pr(Accel): 12.4 mmHg SV(LVOT): 293.1 ml AV VR_phl: 0.27 JATINDER(VTI)/BSA_phl: 2.8 Reading Physician:04:08 PM
== END ==
PROVIDERS: PCP Family Medicine; Referring Provider Internal Medicine Cardiovascular Disease; Visit Provider Internal Medicine Cardiovascular Disease
DX: I08.1 Rheumatic disorders of both mitral and tricuspid valves (principal); I48.21 Permanent atrial fibrillation; Z95.2 Presence of prosthetic heart valve
CPT/HCPCS: 93306

== ENCOUNTER → 2023-08-18 07:56 | Outpatient (CLI) | payer OTHER, SELFPAY ==
[2023-08-18 09:19] LABS: Add Manual Diff / Slide Review NO; Basophils Absolute Auto 100 /uL (0-100); Basophils Percent Auto 1.4 % (0-2); Eosinophils Absolute Auto 300 /uL (0-450); Eosinophils Percent Auto 5.4 % (2-4); Hematocrit 43.3 % (41-53); Hemoglobin 14.8 g/dL (13.5-17.5); Lymphocytes Absolute Auto 2400 /uL (1100-4500); Lymphocytes Percent Auto 39.6 % (25-40); Mean Corpuscular HGB Conc 34.2 % (30-36); Mean Corpuscular Hemoglobin 32.2 PG (26-34); Mean Corpuscular Volume 94.2 fL (80-100); Monocytes Absolute Auto 700 /uL (0-900); Monocytes Percent Auto 11.7 % (3-14); Neutrophils Absolute Auto 2600 /uL (1500-7000); Neutrophils Percent Auto 41.9 % (50-75); Platelet Count 232 X10^3/uL (150-400); Red Cell Distribution Width 13.8 % (11.6-14.8); White Blood Cell Count 6.1 X10^3/uL (4.5-11.0)
[2023-08-18 09:52] LABS: Alanine Aminotransferase 25 IU/L (<50); Albumin 4.1 g/dL (3.5-5.0); Albumin Globulin Ratio 1.3 (1.0-2.8); Alkaline Phosphatase 72 U/L (38-126); Aspartate Aminotransferase 38 IU/L (17-59); BUN Creatinine Ratio 18.9 (6-22); Bilirubin Total 0.8 mg/dL (0.2-1.3); Blood Urea Nitrogen 17 mg/dL (9-20); Calcium 9.4 mg/dL (8.4-10.2); Carbon Dioxide 31 mmol/L (22-32); Chloride 102 mmol/L (98-107); Cholesterol 201 mg/dL (140-199); Estimated Glomerular Filt Rate > 60 mL/min (>60); Globulin 3.1 g/dL (1.7-4.1); Glucose 87 mg/dL (80-110); HDL Cholesterol 47 mg/dL (40-60); HEMOLYSIS < 15 (0-50); LDL Cholesterol Calculated 135 mg/dL (<100); Potassium 4.8 mmol/L (3.4-5.1); Sodium 138 mmol/L (137-145); Total Protein 7.2 g/dL (6.3-8.2); Triglycerides 93 mg/dL (35-150)
[2023-08-18 10:15] LABS: Prostate Specific Antigen Scrn 2.94 ng/mL (0.1-4.0)
[2023-08-18 18:16] LABS: Microalbumin Urine Random < 0.6 mg/dL (0-1.6)
[2023-08-18 18:44] LABS: Creatinine Urine Random 122.6 mg/dL
[2023-08-19 04:36] LABS: Fecal Immunochemical Test Negative (Negative)
== END ==
PROVIDERS: PCP Family Medicine; Referring Provider Family Medicine; Visit Provider Family Medicine
DX: Z12.5 Encounter for screening for malignant neoplasm of prostate (principal); Z12.11 Encounter for screening for malignant neoplasm of colon; I10 Essential (primary) hypertension; I48.91 Unspecified atrial fibrillation; Z95.810 Presence of automatic (implantable) cardiac defibrillator; Z98.890 Other specified postprocedural states; Z86.79 Personal history of other diseases of the circulatory system; Z79.01 Long term (current) use of anticoagulants
CPT/HCPCS: 36415; 80053; 80061; 82043; 82274; 82570; 85025; G0103

== ENCOUNTER → 2024-08-02 09:45 | Outpatient (CLI) | payer OTHER, SELFPAY ==
[2024-08-02 10:06] LABS: Add Manual Diff / Slide Review NO; Basophils Absolute Auto 100 /uL (0-100); Basophils Percent Auto 0.9 % (0-2); Eosinophils Absolute Auto 300 /uL (0-450); Hematocrit 42.3 % (41-53); Hemoglobin 14.1 g/dL (13.5-17.5); Lymphocytes Absolute Auto 2000 /uL (1100-4500); Lymphocytes Percent Auto 35.5 % (25-40); Mean Corpuscular HGB Conc 33.3 % (30-36); Mean Corpuscular Volume 96.1 fL (80-100); Monocytes Absolute Auto 700 /uL (0-900); Monocytes Percent Auto 12.1 % (3-14); Neutrophils Absolute Auto 2500 /uL (1500-7000); Neutrophils Percent Auto 45.5 % (50-75); Platelet Count 245 X10^3/uL (150-400); Red Cell Distribution Width 14.4 % (11.6-14.8); White Blood Cell Count 5.5 X10^3/uL (4.5-11.0)
[2024-08-02 10:37] LABS: Alanine Aminotransferase 30 IU/L (<50); Albumin 4.3 g/dL (3.5-5.0); Albumin Globulin Ratio 1.6 (1.0-2.8); Alkaline Phosphatase 74 U/L (38-126); Aspartate Aminotransferase 44 IU/L (17-59); BUN Creatinine Ratio 16.5 (6-22); Bilirubin Total 0.7 mg/dL (0.2-1.3); Blood Urea Nitrogen 16 mg/dL (9-20); Calcium 9.4 mg/dL (8.4-10.2); Carbon Dioxide 32 mmol/L (22-32); Chloride 106 mmol/L (98-107); Cholesterol 190 mg/dL (140-199); Estimated Glomerular Filt Rate > 60 mL/min (>60); Globulin 2.7 g/dL (1.7-4.1); Glucose 102 mg/dL (80-110); HDL Cholesterol 47 mg/dL (40-60); HEMOLYSIS < 15 (0-50); LDL Cholesterol Calculated 123 mg/dL (<100); Potassium 4.9 mmol/L (3.4-5.1); Sodium 140 mmol/L (137-145); Triglycerides 98 mg/dL (35-150)
[2024-08-02 11:07] LABS: TSH w/ Reflex to FT4 3.85 uIU/mL (0.47-4.68)
== END ==
PROVIDERS: PCP Family Medicine; Referring Provider Family Medicine; Visit Provider Family Medicine
DX: Z00.00 Encounter for general adult medical examination without abnormal findings (principal); I10 Essential (primary) hypertension; I48.11 Longstanding persistent atrial fibrillation; Q89.01 Asplenia (congenital); Z79.01 Long term (current) use of anticoagulants
CPT/HCPCS: 36415; 80053; 80061; 84443; 85025

== ENCOUNTER → 2024-08-25 15:32 | Outpatient (CLI) | payer OTHER, SELFPAY ==
[2024-08-25 18:05] LABS: Prostate Specific Antigen Scrn 2.71 ng/mL (0.1-4.0)
== END ==
LOC: LAB 15:34
PROVIDERS: PCP Family Medicine; Referring Provider Family Medicine; Visit Provider Family Medicine
DX: Z12.5 Encounter for screening for malignant neoplasm of prostate (principal)
CPT/HCPCS: 36415; G0103

== ENCOUNTER → 2024-09-06 13:57 | Outpatient (CLI) | payer OTHER, SELFPAY ==
[2024-09-08 09:36] LABS: Fecal Immunochemical Test Negative (Negative)
== END ==
PROVIDERS: PCP Family Medicine; Referring Provider Family Medicine; Visit Provider Family Medicine
DX: Z12.11 Encounter for screening for malignant neoplasm of colon (principal)
CPT/HCPCS: 82274

== ENCOUNTER → 2024-10-17 13:59 | Outpatient (CLI) | payer OTHER, SELFPAY ==
--- NOTE | 2024-10-17 14:01 | DI.RAD.S_ITS ---
PROCEDURE: XR HIP W PEL IF DONE LT 2V INDICATIONS: Fall on left hip, Hx of left hip trauma/screws TECHNIQUE: AP pelvis with lateral view of the left hip. COMPARISON: None. FINDINGS: Bones: No acute fractures or dislocations. Postsurgical changes from prior left sacroiliac joint fusion with partial osseous bridging. Metal hardware is intact. Old healed fracture deformities of the left pubic bone. Degenerative changes are seen in the hips bilaterally and the included spine. No suspicious bony lesions. Soft tissues: The visualized bowel gas pattern is normal. No suspicious soft tissue calcifications. IMPRESSION: No acute osseous abnormality. If symptoms persist or if there is continued clinical concern, cross-sectional imaging such as MRI or CT may be helpful for further evaluation. Approved by: Sudheer Mcnamara M.D. on 10/17/2024 at 14:56
== END ==
PROVIDERS: PCP Family Medicine; Referring Provider Family Medicine; Visit Provider Family Medicine
DX: M25.552 Pain in left hip (principal); Z87.81 Personal history of (healed) traumatic fracture
CPT/HCPCS: 73502